=== PATIENT | female | born 1985 | race Hispanic/Latino ===

== ENCOUNTER 2018-08-04 11:22 | Outpatient (CLI) | payer MEDICAID ==
[2018-08-04 12:38] LABS: Bacteria,Urine 2+ /HPF (Negative); Bilirubin,Urine NEG (Negative); Blood,Urine NEG (Negative); Color,Urine Yellow (Yellow); Mucus,Urine FEW /HPF; Protein,Urine <15 mg/dL mg/dL (Negative)
[2018-08-04 12:44] LABS: Amphetamine Screen,Urine PRESUMPTIVE NEGATIVE; Benzodiazepines Screen,Urine PRESUMPTIVE NEGATIVE; Cannabinoid Screen,Urine PRESUMPTIVE NEGATIVE; Cocaine Screen,Urine PRESUMPTIVE NEGATIVE; Methadone Screen,Urine PRESUMPTIVE NEGATIVE; Opiate Screen,Urine PRESUMPTIVE NEGATIVE
[2018-08-04] MEDS ORDERED: ceFAZolin 2 GM in NACL 0.9% 100 ML IV ONE (12:56)
[2018-08-04] MEDS ORDERED: LACTATED RINGERS 1,000 ML IV SCH (13:00)
[2018-08-04] MEDS ORDERED: ANCEF/STERILE WATER 2 GM/20 ML 2 GM/20 ML SYRINGE IV SCH (13:10)
[2018-08-04 13:43] VITALS: BP 106/61
== END 2018-08-04 14:03 | disposition home or self-care (01) ==
LOC: TRG 11:22
PROVIDERS: ATTEND Obstetrics & Gynecology
DX: O47.1 False labor at or after 37 completed weeks of gestation (principal); Z3A.39 39 weeks gestation of pregnancy
CPT/HCPCS: 80307; 81001; J0690; J7120

== ENCOUNTER 2020-03-05 20:09 | Inpatient (IN) | payer MEDICAID ==
[2020-03-05] MEDS ORDERED: BUTORPHANOL 2 MG/1 ML INJ IV PRN (20:19)
[2020-03-05] MEDS ORDERED: MINERAL OIL 30 ML ORAL LIQD PO PRN (20:19)
[2020-03-05] MEDS ORDERED: fentaNYL 100 MCG/2 ML INJ IV PRN (20:19)
[2020-03-05] MEDS ORDERED: LIDOCAINE (2%) 20 MG/1 ML VIAL 20 ML MDV INFILTRATI ONE (20:19)
[2020-03-05] MEDS ORDERED: ePHEDrine SULFATE 50 MG/1 ML INJ IV PRN (20:19)
[2020-03-05] MEDS ORDERED: TERBUTALINE 1 MG/1 ML INJ SUB-Q PRN (20:19)
[2020-03-05] MEDS ORDERED: ACETAMINOPHEN 325 MG TAB PO PRN ×2 (20:19→21:32)
[2020-03-05] MEDS ORDERED: OXYTOCIN 20 UNIT/1000ML DRIP 20 UNITS/1,000 ML BAG IV SCH (21:00)
[2020-03-05] MEDS ORDERED: OXYTOCIN DRIP 30 UNITS/500 ML BAG IV SCH (21:00)
[2020-03-05] MEDS ORDERED: LACTATED RINGERS 1,000 ML IV SCH (21:00)
[2020-03-05 21:02] LABS: Hematocrit 36.2 % (30.3-42.9); Hemoglobin 12.9 gm/dl (10.1-14.3); Mean Corpuscular HGB Conc 36 % (30-34); Mean Corpuscular Volume 92 fl (79-97); Platelet Count 239 K/mm3 (140-440); Red Blood Count 3.93 M/mm3 (3.65-5.03); Red Cell Distribution Width 14.9 % (13.2-15.2)
--- NOTE | 2020-03-05 21:26 | History and Physical Report ---
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 +FM. No LOF or VB. Past History Past Medical History: other (obesity, class III) [employer] History: herpes Social history: smoking - Obstetrical History : 8 Para: 5 Number of Pregnancies: 5 Spontaneous Abortions: 2 Number of Living Children: 5 Medications and Allergies Allergies Allergy/AdvReac Type Severity Reaction Status Date / Time No Known Allergies Allergy Unverified 08/05/15 12:24 Home Medications Medication Instructions Recorded Confirmed Last Taken Type Acetaminophen/Codeine [Tylenol #3] 1 tab PO Q6H PRN #15 tab 08/05/15 Unknown Rx Penicillin Vk [Veetids TAB] 500 mg PO QID #40 tablet 08/05/15 Unknown Rx Active Meds: Active Medications Acetaminophen (Tylenol) 650 mg PO Q4H PRN PRN Reason: Pain, Mild (1-3) Butorphanol Tartrate (Stadol) 1 mg IV Q2H PRN PRN Reason: Pain, Moderate(4-6) LABOR PAIN Ephedrine Sulfate (Ephedrine Sulfate) 10 mg IV Q2M PRN PRN Reason: Hypotension Fentanyl (Sublimaze) 100 mcg IV Q2H PRN PRN Reason: Pain,Severe (7-10) LABOR PAIN Oxytocin/Sodium Chloride (Pitocin/Ns 30 Unit/500ml) 30 units in 500 mls @ 2 mls/hr IV TITR GERA; Protocol Lactated Ringer's (Lactated Ringers) 1,000 mls @ 125 mls/hr IV DIRECT GERA Oxytocin/Sodium Chloride (Pitocin/Ns 20 Unit/1000ml Drip) 20 units in 1,000 mls @ 125 mls/hr IV DIRECT GERA Last Admin: 03/05/20 21:06 Dose: 1,200 mls/hr Documented by: Mineral Oil (Mineral Oil) 30 ml PO QHS PRN PRN Reason: Constipation Terbutaline Sulfate (Brethine) 0.25 mg SUB-Q ONCE PRN PRN Reason: Hyperstimulation/Hypertonicity Review of Systems All systems: negative (expect HPI) - Vital Signs Vital signs: Vital Signs Temp Pulse Resp BP 97.8 F 78 18 111/64 03/05/20 20:10 03/05/20 20:10 03/05/20 20:10 03/05/20 20:10 Temp Pulse Resp BP Pulse Ox 97.8 F 73 18 117/80 03/05/20 20:10 03/05/20 20:32 03/05/20 20:10 03/05/20 20:32 - Physical Exam Abdomen: Positive: normal appearance, other (gravid) - Obstetrical FHR: auscultation normal Uterine Contraction Monitor Mode: External Cervical Dilatation: 6 Cervical Effacement Percentage: 80 station: -1 Uterine Contraction Pattern: Regular Results Result Diagrams: 03/05/20 20:10 Abnormal lab results 03/05/20 Range/Units 20:10 WBC 14.2 H (4.5-11.0) K/mm3 MCH 33 H (28-32) pg MCHC 36 H (30-34) % All other labs normal. Assessment and Plan - Patient Problems (1) Active labor at term Current Visit: Yes Status: Acute Plan to address problem: --Expectant management, pitocin prn augmentation --GBS neg --Plan on DMPA (2) Herpes genitalia Current Visit: Yes Status: Acute Plan to address problem: on HSV suppression
[2020-03-05] MEDS ORDERED: PROMETHAZINE 25 MG TAB PO PRN (21:32)
[2020-03-05] MEDS ORDERED: PROMETHAZINE 25 MG RECT SUPP PR PRN (21:32)
[2020-03-05] MEDS ORDERED: ONDANSETRON 4 MG/2 ML INJ IV PRN (21:32)
[2020-03-05] MEDS ORDERED: diphenhydrAMINE 25 MG CAP PO PRN (21:32)
[2020-03-05] MEDS ORDERED: WITCH HAZEL/ GLYCERIN PAD TP PRN (21:32)
[2020-03-05] MEDS ORDERED: HYDROCORTISONE 25 MG RECTAL SUPP PR PRN (21:32)
[2020-03-05] MEDS ORDERED: MAGNESIUM HYDROXIDE (MOM) ORAL LIQD UDC PO PRN (21:32)
[2020-03-05] MEDS ORDERED: LANOLIN/ZINC/DIMETHICONE (LANSINOH) 7 GM TP PRN (21:32)
--- NOTE | 2020-03-05 21:45 | Procedure Note ---
OB Delivery Note - Delivery Date of Delivery: 03/05/20 Surgeon: KENNEY PARSON JR Estimated blood loss: 200cc - Vaginal Delivery position: OA Intrapartum events: none Delivery induction: none Delivery monitor: external FHT Route of delivery: Anesthesia: none Delivery comments: boy [id number], 8/9 APGARS, no lacerations - A at 1 minute: 8 at 5 minutes: 9 Infant Gender: Male
[2020-03-05] MEDS: IBUPROFEN 600 MG TAB PO SCH (21:53)
[2020-03-06] MEDS: oxyCODONE /ACETAMINOPHEN 5-325MG TAB PO PRN ×2 (03:41→17:21)
[2020-03-06] MEDS: IBUPROFEN 600 MG TAB PO SCH ×3 (06:06→23:29)
--- NOTE | 2020-03-06 09:17 | Progress Note ---
Assessment and Plan - Patient Problems (1) Status post normal vaginal delivery Current Visit: Yes Status: Acute Plan to address problem: Continue routine PP orders Anticipate d/c home tomorrow if stable F/U at office in 6 wks for routine PP visit Subjective - Subjective Date of service: 03/06/20 Principal diagnosis: S/P ; PPD 1 Interval history: See admission H & P; OB delivery summary and PP progress notes Patient reports: appetite normal, voiding normally, pain well controlled, flatus, ambulating normally : doing well, bottle feeding Objective - Vital Signs Latest vital signs: Vital Signs Temp Pulse Resp BP BP Pulse Ox 03/06/20 08:36 98.7 F 97 H 14 105/63 03/06/20 08:32 97 H 97 03/06/20 06:53 18 03/06/20 06:06 18 03/06/20 04:41 18 03/06/20 04:30 98.5 F 70 18 117/58 98 03/06/20 03:41 18 03/05/20 23:05 98.3 F 65 18 105/51 96 03/05/20 22:53 18 03/05/20 22:06 62 116/54 03/05/20 20:32 73 117/80 03/05/20 20:10 97.8 F 78 18 111/64 Intake and Output 03/05/20 03/06/20 03/06/20 23:59 07:59 15:59 Intake Total 600 Output Total 850 Balance -250 Intake: Oral 600 Output: Urine 850 Void 850 Other: Total, Intake Amount 360 Total, Output Amount 400 Weight 129.274 kg Estimated Blood Loss 200 - Exam Breasts: Present: normal Cardiovascular: Present: Regular rate Lungs: Present: Normal air movement Abdomen: Present: soft Uterus: Present: firm, fundal height below umbilicus (U-1) Extremities: Present: normal Deep Tendon Reflex Grade: Normal +2 - Labs Labs: Abnormal lab results 03/05/20 Range/Units 20:10 WBC 14.2 H (4.5-11.0) K/mm3 MCH 33 H (28-32) pg MCHC 36 H (30-34) %
--- NOTE | 2020-03-06 09:21 | Discharge Summary ---
Providers - Providers Date of Admission: 03/05/20 20:40 Date of discharge: 03/07/20 Attending physician: KENNEY PARSON JR, MD Primary care physician: KENNEY PARSON JR, MD Hospitalization Reason for admission: active labor Delivery: Episiotomy: none Laceration: none Other procedures: none complications: none Discharge diagnosis: IUP at term delivered baby: male Hospital course: See admission H & P; OB delivery summary and PP progress notes Condition at discharge: Stable Disposition: DC-01 TO HOME OR SELFCARE - Discharge Diagnoses (1) Status post normal vaginal delivery Status: Acute Plan - Provider Discharge Summary Activity: routine, no sex for 6 weeks, no heavy lifting 4 weeks, no strenuous exercise Diet: other (Iron rich diet) Instructions: routine Additional instructions: [] Smoking cessation referral if applicable(refer to patient education folder for contact #) [] Refer to [facility] Booklet Call your doctor immediately for: * Fever > 100.5 * Heavy vaginal bleeding ( >1 pad per hour) * Severe persistent headache * Shortness of breath * Reddened, hot, painful area to leg or breast * Drainage or odor from incision. * Keep incision clean and dry at all times and follow doctor's instructions regarding bathing/showering - Follow up plan Follow up: KENNEY PARSON JR, MD [Primary Care Provider] - 6 Weeks
[2020-03-06 10:43] LABS: Hemoglobin 11.4 gm/dl (10.1-14.3)
[2020-03-06] MEDS ORDERED: DIPHtheria,PERTUSSIS(ACELL),TETANUS VACCINE/PF 0.5 ML VIAL IM ONE (20:55)
[2020-03-07] MEDS: IBUPROFEN 600 MG TAB PO SCH (05:32)
[2020-03-07] MEDS ORDERED: DIPHtheria,PERTUSSIS(ACELL),TETANUS VACCINE/PF 0.5 ML VIAL IM ONE (06:00)
[2020-03-07 12:24] VITALS: BP 130/76
== END 2020-03-07 12:05 | disposition home or self-care (01) | DRG 774 ==
LOC: TRG 20:09 → LD 20:10 → TRG 20:39 → LD 20:40 → OB 22:45
PROVIDERS: ADMIT Obstetrics & Gynecology; ATTEND Obstetrics & Gynecology
PROC: 10E0XZZ Delivery of Products of Conception, External Approach (ICD-10-PCS; principal; 2020-03-05)
PROC: 3E0234Z Introduction of Serum, Toxoid and Vaccine into Muscle, Percutaneous Approach (ICD-10-PCS; 2020-03-07)
DX: O98.32 Other infections with a predominantly sexual mode of transmission complicating childbirth (principal); Z3A.38 38 weeks gestation of pregnancy; A60.00 Herpesviral infection of urogenital system, unspecified; Z37.0 Single live birth; Z23 Encounter for immunization; O99.214 Obesity complicating childbirth; E66.9 Obesity, unspecified
CPT/HCPCS: 36415; 85014; 85018; 85027; 86592; 86850; 86900; 86901; 90471; 90715; G0378; J0595; J2590; J7120